=== PATIENT | female | born 1940 | race Caucasian/White ===

== ENCOUNTER → 2017-05-23 | Outpatient (CLI) | payer OTHER | LOC: FIMAGING 14:34 | PROVIDERS: ATTEND Obstetrics & Gynecology | DX: Z12.31 Encounter for screening mammogram for malignant neoplasm of breast (principal) | CPT/HCPCS: G0202 ==

== ENCOUNTER 2017-07-03 10:38 | Day surgery (SDC) | payer OTHER ==
[2017-07-03] MEDS ORDERED: LR 1,000 ML IV ONE (10:57)
--- NOTE | 2017-07-03 11:44 | PDANEPAE ---
ANE Past Medical History - Cardiovascular History Hx Hypertension: No Hx Arrhythmias: No Hx Chest Pain: No Hx Coronary Artery / Peripheral Vascular Disease: No Hx CHF / Valvular Disease: No Hx Palpitations: No Cardiovascular History Comment: SL IRREG HB FOR YEARS - Pulmonary History Hx COPD: No Hx Asthma/Reactive Airway Disease: No Hx Recent Upper Respiratory Infection: No Hx Oxygen in Use at Home: No Hx Sleep Apnea: Yes Sleep Apnea Screening Result - Last Documented: Positive - Neurologic History Hx Cerebrovascular Accident: No Hx Seizures: No Hx Dementia: No - Endocrine History Hx Diabetes: No - Renal History Hx Renal Disorders: No - Liver History Hx Hepatic Disorders: No - Neurological & Psychiatric Hx Hx Neurological and Psychiatric Disorders: No - Cancer History Hx Cancer: No - Congenital Disorder History Hx Congenital Disorders: No - GI History Hx Gastrointestinal Disorders: No - Other Health History Other Health History: NEG - Chronic Pain History Chronic Pain: Yes (BACK PAIN) - Surgical History Prior Surgeries: L FOOT SURG. FACE LIFT. MAMMOPLASTY. NEEDLE BX R BREAST. R HAND SURG. HYSTERECTOMY. CERVICAL DISCECTOMY. CERVICAL FUSION 1983. RTC REPAIR L. CARPAL TUNNEL. LAMINECTOMY ANE Review of Systems Review of Systems: - Exercise capacity METS (RN): 4 METS ANE Patient History - Allergies Allergies/Adverse Reactions: latex [Latex] Allergy (Unknown, Verified 07/03/17 11:23) Itching - Home Medications Home Medications: traZODone [traZODONE 50MG (*)] 25 - 50 mg PO HS 11/14/14 [Last Taken 07/03/17] Pregabalin [Lyrica 50mg (*)] 50 mg PO HS 11/15/14 [Last Taken Unknown] Herbals/Supplements -Info Only 06/29/17 [Last Taken 06/30/17 08:00] Minocycline HCl 06/29/17 [Last Taken 07/02/17 12:00] - NPO status NPO Since - Liquids (Date): 07/03/17 NPO Since - Liquids (Time): 07:30 NPO Since - Solids (Date): 07/01/17 NPO Since - Solids (Time): 18:00 - Anes Hx Anes Hx: no prior problems - Smoking Hx Smoking Status: Never smoked - Family Anes Hx Family Hx Anesthesia Complications: NEG ANE Labs/Vital Signs - Vital Signs Blood Pressure: 126/88 Heart Rate: 72 Respiratory Rate: 16 O2 Sat (%): 96 Height: 161.29 cm Weight: 61.689 kg ANE Physical Exam - Airway Neck exam: decreased ROM Mallampati Score: Class 2 Mouth exam: normal dental/mouth exam - Pulmonary Pulmonary: no respiratory distress, no rales or rhonchi, clear to auscultation - Cardiovascular Cardiovascular: regular rate and rhythym, no murmur, rub, or gallop - ASA Status ASA Status: II ANE Anesthesia Plan Anesthesia Plan: MAC
[2017-07-03] MEDS ORDERED: INDOMETHACIN 50 MG SUPP PR PRN (11:47)
--- NOTE | 2017-07-03 11:47 | PDGENHP ---
History & Physical Chief Complaint: colonic polyps History of Present Illness: 76 year old female with a personal hx of a complex transverse colon polyp presents for surveillance colonoscopy. Pertinent Past, Social, Family History: PMHx: osteopenia. FaMHx: No CRC Relevant Physical Exam: HEENT: anicteric. CV: RRR + s1s2. Lungs: CTAB. Abd: soft, nt, + bs. No g/r Cardiorespiratory Assessment: ASA 2
[2017-07-03] MEDS ORDERED: PROPOFOL 200 MG/20 ML VIAL ONE (11:52)
[2017-07-03] MEDS ORDERED: NS 500 ML IV SCH (12:00)
[2017-07-03] MEDS ORDERED: fentaNYL 100 MCG/2 ML INJ IVP PRN (12:01)
[2017-07-03] MEDS ORDERED: LABETALOL HCL 50 MG/10 ML SYR IVP PRN (12:01)
[2017-07-03] MEDS ORDERED: PROMETHAZINE HCL 25 MG/ML INJ IVP PRN (12:01)
[2017-07-03] MEDS ORDERED: ONDANSETRON 4 MG/2 ML VIAL IVP PRN (12:01)
[2017-07-03] MEDS ORDERED: DEXAMETHASONE 4 MG/ML VIAL IVP PRN (12:01)
[2017-07-03] MEDS ORDERED: NALOXONE HCL 0.4 MG/ML INJ IVP PRN (12:01)
[2017-07-03] MEDS ORDERED: LR 500 ML IV PRN (12:01)
[2017-07-03] MEDS ORDERED: MEPERIDINE 25 MG/ML SYR IVP PRN (12:01)
--- NOTE | 2017-07-03 12:23 | POSTOPPROG ---
Post Op Note Date of Operation: 07/03/17 Surgeon: Etienne Carrillo Anesthesia: IV Sedation Pre-op Diagnosis: hx of colononic polyp Post-op Diagnosis: diverticulosis, hx of polyps Procedure: colonoscopy snare and bx Findings: diverticulosis Inf/Abcess present in the surg proc area at time of surgery?: No EBL: Minimal Specimen(s): ac tc x 2 dc x 1
[2017-07-03] MEDS ORDERED: fentaNYL 100 MCG/2 ML INJ ONE (12:26)
--- NOTE | 2017-07-03 12:35 | GIREPORT ---
[facility] Surgical Services - Endoscopy Department Patient Name: Ninfa Marie Procedure Date: 07/03/2017 11:43 AM Patient Type: Outpatient Attending / STANLEY Physician: Etienne Carrillo MD Procedure: Colonoscopy Indications: High risk colon cancer surveillance: Personal history of colonic polyps Patient Profile: 76 year old female with a history of a complex transverse colon polyp presents for surveillance colonoscopy Providers: Etienne Carrillo MD Medicines: Monitored Anesthesia Care Complications: No immediate complications. Estimated blood loss: Minimal. Findings: The perianal and digital rectal examinations were normal. Pertinent negatives include no palpable rectal lesions. Multiple small and large-mouthed diverticula were found in the sigmoid colon, descending colon, transverse colon, ascending colon and cecum. A 5 mm polyp was found in the ascending colon. The polyp was sessile. The polyp was removed with a cold snare. Resection and retrieval were complete. A 4 mm polyp was found in the transverse colon. The polyp was sessile. The polyp was removed with a cold snare. Resection and retrieval were complete. A 2 mm polyp was found in the transverse colon. The polyp was sessile. The polyp was removed with a cold biopsy forceps. Resection and retrieval were complete. A 4 mm polyp was found in the descending colon. The polyp was sessile. The polyp was removed with a cold snare. Resection and retrieval were complete. Estimated Blood Loss: Estimated blood loss was minimal. Post Op Diagnosis: - Diverticulosis in the sigmoid colon, in the descending colon, in the transverse colon, in the ascending colon and in the cecum. - One 5 mm polyp in the ascending colon, removed with a cold snare. Resected and retrieved. - One 4 mm polyp in the transverse colon, removed with a cold snare. Resected and retrieved. - One 2 mm polyp in the transverse colon, removed with a cold biopsy forceps. Resected and retrieved. - One 4 mm polyp in the descending colon, removed with a cold snare. Resected and retrieved. Recommendation: - Discharge patient to home (with escort). - Resume previous diet. - Continue present medications. - Repeat colonoscopy in 2 years for surveillance. - Use fiber, for example Citrucel, Fibercon, Konsyl or Metamucil. - Await pathology results. Attending Participation: I personally performed the entire procedure. Etienne Carrillo MD Etienne Carrillo MD 07/03/2017 12:35:07 PM Number of Addenda: 0 Note Initiated On: 07/03/2017 11:43 AM Total Procedure Duration Time 0 hours 21 minutes 21 seconds [email or web address]
--- NOTE | 2017-07-03 12:41 | POSTANESTH ---
Post Anesthetic Evaluation Cardiovascular Status: Similar to Pre-Op Cond Respiratory Status: Normal, Stable, Similar to Pre-op Cond. Level of Consciousness/Mental Status: Can Participate in Eval, Alert and Oriented Pain Control: Adequate, Prn Tx Ordered Nausea/Vomiting Control: Adequate, Prn Tx Ordered Complications Possibly Related to Anesthesia: None Noted
[2017-07-03 14:13] VITALS: BP 144/68; RESP 16; TEMP 97.7
[2017-07-03 14:17] VITALS: PULSE 68; O2SAT 97
== END 2017-07-03 14:40 | disposition home or self-care (01) ==
LOC: FSGY 10:38
PROVIDERS: ATTEND Internal Medicine Gastroenterology
PROC: 0DBK8ZX Excision of Ascending Colon, Via Natural or Artificial Opening Endoscopic, Diagnostic (ICD-10-PCS; principal; 2017-07-03 11:45)
PROC: 0DBM8ZX Excision of Descending Colon, Via Natural or Artificial Opening Endoscopic, Diagnostic (ICD-10-PCS; principal; 2017-07-03 11:45)
PROC: 0DBL8ZX Excision of Transverse Colon, Via Natural or Artificial Opening Endoscopic, Diagnostic (ICD-10-PCS; principal; 2017-07-03 11:45)
DX: Z12.11 Encounter for screening for malignant neoplasm of colon (principal); M85.80 Other specified disorders of bone density and structure, unspecified site; K57.30 Diverticulosis of large intestine without perforation or abscess without bleeding; D12.2 Benign neoplasm of ascending colon; D12.3 Benign neoplasm of transverse colon; D12.4 Benign neoplasm of descending colon
CPT/HCPCS: J2704; J3010

== ENCOUNTER → 2017-08-24 | Outpatient (CLI) | payer OTHER ==
[~2017-08-24] MED LIST: GADOBUTROL 10 ML VIAL IVP ONE
== END ==
LOC: FIMAGING 14:29
PROVIDERS: ATTEND Nurse Practitioner Acute Care
DX: I77.810 Thoracic aortic ectasia (principal); R22.1 Localized swelling, mass and lump, neck
CPT/HCPCS: 76536; A9585; C8909

== ENCOUNTER → 2017-09-09 | Outpatient (CLI) | payer OTHER | LOC: FIMAGING 12:00 | PROVIDERS: ATTEND Physician Assistant Medical | DX: S46.012A Strain of muscle(s) and tendon(s) of the rotator cuff of left shoulder, initial encounter (principal); M25.512 Pain in left shoulder; M75.52 Bursitis of left shoulder; M19.012 Primary osteoarthritis, left shoulder; M75.82 Other shoulder lesions, left shoulder ==

== ENCOUNTER → 2018-04-05 | Outpatient (CLI) | payer OTHER | LOC: FIMAGING 13:21 | PROVIDERS: ATTEND Physical Medicine & Rehabilitation | DX: S13.160A Subluxation of C5/C6 cervical vertebrae, initial encounter (principal); S13.170A Subluxation of C6/C7 cervical vertebrae, initial encounter; M89.38 Hypertrophy of bone, other site; M41.86 Other forms of scoliosis, lumbar region; S33.130A Subluxation of L3/L4 lumbar vertebra, initial encounter; M51.36 Other intervertebral disc degeneration, lumbar region ==

== ENCOUNTER → 2018-07-06 | Outpatient (CLI) | payer OTHER ==
[~2018-07-06] MED LIST changes: -GADOBUTROL 10 ML VIAL IVP ONE; +IOPAMIDOL (ISOVUE-300) 100 ML BTL ONE
== END ==
LOC: FIMAGING 10:17
PROVIDERS: ATTEND Physician Assistant
DX: R16.0 Hepatomegaly, not elsewhere classified (principal); N28.9 Disorder of kidney and ureter, unspecified; K57.30 Diverticulosis of large intestine without perforation or abscess without bleeding; K83.8 Other specified diseases of biliary tract
CPT/HCPCS: 74177; Q9967; 82565-PO

== ENCOUNTER → 2018-11-06 | Outpatient (CLI) | payer OTHER | LOC: FIMAGING 19:23 | PROVIDERS: ATTEND Physical Medicine & Rehabilitation | DX: M53.88 Other specified dorsopathies, sacral and sacrococcygeal region (principal); M54.5 Low back pain; M51.36 Other intervertebral disc degeneration, lumbar region; M51.27 Other intervertebral disc displacement, lumbosacral region ==

== ENCOUNTER → 2018-11-16 | Outpatient (CLI) | payer OTHER | LOC: FIMAGING 13:16 | PROVIDERS: ATTEND Family Medicine | DX: M81.0 Age-related osteoporosis without current pathological fracture (principal); Z12.31 Encounter for screening mammogram for malignant neoplasm of breast; Z98.82 Breast implant status ==

== ENCOUNTER → 2019-01-07 | Outpatient (CLI) | payer OTHER ==
[~2019-01-07] MED LIST changes: +GADOBUTROL 10 ML VIAL IVP ONE; -IOPAMIDOL (ISOVUE-300) 100 ML BTL ONE
== END ==
LOC: FIMAGING 11:40
DX: I71.2 Thoracic aortic aneurysm, without rupture (principal)
CPT/HCPCS: A9585; C8909; 82565-PO

== ENCOUNTER → 2019-04-03 | Outpatient (CLI) | payer OTHER | LOC: FIMAGING 11:28 ==